=== PATIENT | female | born 1980 | race Caucasian/White ===

== ENCOUNTER 2017-02-01 07:58 | Day surgery (SDC) | payer MEDICAID, OTHER ==
[~2017-02-01 07:58] MED LIST: Buffered Lidocaine 1% SYR 3ML* 3 ML/SYR SYRINGE INTRADERM ONE; Famotidine IV* 10 MG/ML 2 ML (20 mg) IV ONE
[2017-02-01] MEDS ORDERED: fentaNYL* 50 MCG/ML 2 ML VIAL (100 MCG VIAL) ONE ×4 (08:01→09:33)
[2017-02-01] MEDS ORDERED: Rocuronium* 10 MG/ML VIAL ONE ×2 (08:01)
[2017-02-01] MEDS ORDERED: Midazolam* 1 MG/ML 5 ML VIAL (5 MG) ONE ×2 (08:02)
[2017-02-01] MEDS ORDERED: Famotidine IV* 10 MG/ML 2 ML (20 mg) ONE ×2 (08:17)
[2017-02-01 08:36] LABS: Manual Entry Verification AS; UR Preg Internal Control QC Line Present; UR Preg Kit Lot# 6060104
[2017-02-01] MEDS ORDERED: DiMENhydriNATE IV* 50 MG/ML VIAL ONE ×4 (08:39→10:48)
[2017-02-01] MEDS ORDERED: Succinylcholine* 20 MG/ML 10 ML VIAL ONE ×2 (08:39)
[2017-02-01] MEDS ORDERED: Ketorolac INJ* 30 MG/ML 1 ML VIAL ONE ×2 (08:39)
[2017-02-01] MEDS ORDERED: Dexamethasone IV* 4 MG/ML 1 ML (4 MG) ONE ×2 (08:39)
[2017-02-01] MEDS ORDERED: Propofol* 10 MG/ML 20 ML BTL IV PUSH ONE ×2 (08:39)
[2017-02-01] MEDS ORDERED: Lidocaine 2% PF * 5 ML VIAL ONE ×2 (08:39)
[2017-02-01] MEDS ORDERED: Ondansetron INJ* 2 MG/ML VIAL ONE ×2 (08:39)
[2017-02-01] MEDS ORDERED: DiMENhydriNATE IV* 50 MG/ML VIAL IV PUSH PRN (08:56)
[2017-02-01] MEDS ORDERED: Bupivacaine 0.5% W/EPI SDV* 30 ML VIAL ONE ×2 (09:06)
[2017-02-01] MEDS ORDERED: HYDROmorphone INJ* 1 MG/ML CARPUJECT SYRINGE ONE ×2 (10:47)
[2017-02-01] MEDS: HYDROmorphone INJ* 1 MG/ML CARPUJECT SYRINGE IV PRN ×2 (10:51→11:06)
[2017-02-01] MEDS ORDERED: oxyCODONE/Acetamin 5/325 MG* TAB ONE ×2 (11:34)
[2017-02-01] MEDS: oxyCODONE/Acetamin 5/325 MG* TAB PO PRN ×2 (11:35→11:36)
[2017-02-01 11:48] VITALS: BP 138/64
--- NOTE | 2017-02-02 01:09 | OP ---
DATE OF OPERATION: 02/01/17 [facility] DATE OF : 84 SURGEON: Zuly Brooks MD ANESTHESIOLOGIST: Eri Mcdonald MD ANESTHESIA: General, endotracheal. PRE-OP DIAGNOSIS: Desires permanent sterilization. POST-OP DIAGNOSIS: Desires permanent sterilization. OPERATIVE PROCEDURE: Laparoscopic bilateral tubal ligation with fulguration. EBL: Minimal. FLUIDS: Crystalloid. DRAINS: 300 to 400 cc of clear urine was drained prior to the procedure. FINDINGS: Normal-appearing uterus, ovaries, and tubes. The right ovary did have small corpus luteal cyst on it. DESCRIPTION OF PROCEDURE: After informed consent was signed and the patient was taken to the operating room where she was given general anesthesia that was found to be adequate. She was prepped and draped in the dorsal lithotomy position in Tutu stirrups. A speculum was placed into the vagina to expose the cervix and the anterior lip of the cervix was grasped with a single-tooth tenaculum. The [employer] manipulator was then inserted into the cervix. Gloves were changed and attention was turned to the abdomen. The infraumbilical fold was grasped with Allis clamps and the area was injected with lidocaine. 5-mm incision was then made with the scalpel and carried down to the underlying layer of fascia. The patient had a small umbilical hernia slightly to the left of the umbilicus and this was used to enter the abdomen. The trocar was inserted and the camera was inserted into the abdominal cavity under direct visualization. CO2 was then turned on and the abdomen was insufflated with good visualization of the pelvic cavity. A 5-mm lateral port was then inserted on the patient's right hand side also with injection of lidocaine prior to insertion. Kleppinger device was then assembled and inserted. First, attention was turned to the patient's right tube. This was traced to the fimbriated end and then fulgurated along the whole mid portion of the tube until complete desiccation was confirmed. Attention was turned to the left hand tube, this tube was also traced to the fimbriated end and the Kleppinger device was used to fulgurate along the whole midportion of the tube until complete desiccation was confirmed. Instruments were then removed and the lateral port was removed under direct visualization. Good hemostasis was noted. There was no injury to nearby organs. The umbilical port was then removed. The fascia around the edges of the umbilical hernia was then closed with the figure-of-8 suture of 0 Vicryl. The skin was closed with 4-0 Vicryl in a figure-of-8 suture and Mastisol and Steri-Strips were then applied. The patient was cleaned, awakened from anesthesia, moved to the stretcher, and taken to the recovery room in stable condition. [id number] #: [id number] JANNA
== END 2017-02-01 12:35 | disposition home or self-care (01) ==
LOC: OR 07:58
PROVIDERS: ATTEND Obstetrics & Gynecology
DX: Z30.2 Encounter for sterilization (principal)
CPT/HCPCS: 81025; A9270-GY; J0330; J1100; J1170; J1240; J1885; J2250; J2405; J2704; J3010